=== PATIENT | male | born 1960 | race Caucasian/White ===

== ENCOUNTER 2018-01-22 19:53 | Emergency (ER) | payer SELFPAY ==
--- NOTE | 2018-01-23 06:26 | ER Document Report ---
ED Fall - General Chief Complaint: Fall Stated Complaint: FALL Time Seen by Provider: 01/23/18 06:15 - HPI Notes: Patient is a 58-year-old male that presents to the emergency department for chief complaint of fall and head injury. Patient states he was drinking alcohol yesterday. He fell backwards in the shower hitting his low back, right shoulder, and head. He complains of sharp pain on the left side of his low back. The pain is nonradiating. It is worse with movement and relieved when he is sitting still. He has not taken any pain medication at home. He denied any loss of consciousness. He denies headache, vision changes, numbness, weakness and neck pain. Past Medical History: COPD, hepatitis C Past Surgical History: Social History: Daily tobacco, occasional alcohol, denies drug use Family History: Reviewed and noncontributory for presenting illness Allergies: Reviewed, see documented allergy list. REVIEW OF SYSTEMS: CONSTITUTIONAL : No fever No chills No diaphoresis No recent illness EENT: No vision changes No congestion No sore throat CARDIOVASCULAR: No chest pain No palpitations RESPIRATORY: No shortness of breath No cough No difficulty breathing GASTROINTESTINAL: No abdominal pain No nausea No vomiting No diarrhea GENITOURINARY: No dysuria No hematuria No difficulty urinating MUSCULOSKELETAL: back pain No leg pain Shoulder pain SKIN: No rashes No lesions LYMPHATIC: No swollen, enlarged glands. NEUROLOGICAL: No lightheadedness No headache No weakness No paresthesias PSYCHIATRIC: No anxiety No depression PHYSICAL EXAMINATION: Vital signs reviewed, nursing noted reviewed. GENERAL: Well-appearing, well-nourished and in no acute distress. HEAD: Atraumatic, normocephalic. EYES: Eyes appear normal, extraocular movements intact, sclera anicteric, conjunctiva are normal. ENT: nares patent, oropharynx clear without exudates. Moist mucous membranes. NECK: Normal range of motion, supple without lymphadenopathy BACK: Left lumbar paraspinal tenderness and midline lumbar tenderness. No step- offs. No right paraspinal tenderness LUNGS: Breath sounds clear to auscultation bilaterally and equal. No wheezes rales or rhonchi. HEART: Regular rate and rhythm without murmurs ABDOMEN: Soft, nontender, normoactive bowel sounds. No rebound, guarding, or rigidity. No masses appreciated. EXTREMITIES: Nontender, good range of motion, no pitting or edema. Pelvis stable NEUROLOGICAL: No focal neurological deficits. Moves all extremities spontaneously Motor and sensory grossly intact on exam. PSYCH: Normal mood, normal affect. SKIN: Warm, Dry, normal turgor, no rashes. Superficial abrasion to dorsal left forearm with no active bleeding. - Related data Allergies/Adverse Reactions: No Known Drug Allergies Allergy (Verified 01/22/18 19:57) Past Medical History - Social History Smoking Status: Current Every Day Smoker Family History: Reviewed & Not Pertinent Patient has suicidal ideation: No Patient has homicidal ideation: No Renal/ Medical History: Denies: Hx Peritoneal Dialysis Review of Systems - Review of Systems Notes: Dictated Physical Exam - Vital signs Vitals: Temp Pulse BP Pulse Ox 98.2 F 83 109/61 96 01/22/18 20:14 01/22/18 20:14 01/22/18 20:14 01/22/18 20:14 - Notes Notes: Dictated Course - Re-evaluation Re-evalutation: 01/23/18 06:23 Vitals reviewed and stable. Nursing notes reviewed. Patient has no focal neurologic deficits. He is alert with a GCS of 15 and speaking in complete sentences. Tetanus was updated last year. Patient has full range of motion, no external signs of injury, and no bony tenderness in the right shoulder, I do not suspect acute fracture of the right shoulder therefore imaging not currently indicated. 01/23/18 06:25 01/23/18 08:[address] 01/23/18 06:20 IMPRESSION: 1. No acute fracture or dislocation of the cervical spine. 2. Multilevel degenerative changes as described above.. Head CT 01/23/18 06:20 IMPRESSION: There is no evidence of acute intracranial pathology. Lumbar Spine X-Ray 01/23/18 06:20 IMPRESSION: 1. Mild scoliosis and degenerative changes involving the lumbar spine. 2. No acute osseous findings. 3. If symptoms are persistent, additional imaging may be helpful for further evaluation. Patient has remained neurologically intact and is able to ambulate. Given ibuprofen for pain. Images show no acute injury. Patient discharged home in stable condition - Vital Signs Vital signs: Temp Pulse Resp BP Pulse Ox 97.5 F 67 18 118/74 99 01/23/18 05:28 01/23/18 05:28 01/23/18 01:38 01/23/18 05:28 01/23/18 05:28 Discharge - Discharge Clinical Impression: Closed head injury Qualifiers: Encounter type: initial encounter Qualified Code(s): S09.90XA - Unspecified injury of head, initial encounter Back pain Qualifiers: Back pain location: low back pain Chronicity: acute Back pain laterality: left Sciatica presence: without sciatica Qualified Code(s): M54.5 - Low back pain Shoulder pain Qualifiers: Chronicity: acute Laterality: right Qualified Code(s): M25.511 - Pain in right shoulder Condition: Stable Disposition: HOME, SELF-CARE Instructions: Family Physicians / Practices, Head Injury Precautions ([facility]), Low Back Pain ([facility]) Additional Instructions: Please return to the emergency department if you have any worsening, or concern of your symptoms. Please return to the emergency department if you develop chest pain, difficulty breathing, severe abdominal pain, or ongoing vomiting. Please follow-up with your primary care physician in 2-3 days and any other recommended physicians. If prescribed, take all medications as directed. If you have any questions or concerns do not hesitate to return the emergency department for evaluation. []
--- NOTE | 2018-01-23 07:18 | RADIOLOGY REPORT (SQ) ---
CLINICAL DATA: 58-year-old male who fell in the bathroom last night and hit posterior head and has posterior head pain. TECHNICAL DATA: Multiple axial CT images of the brain were performed followed by sagittal and coronal reconstructed images. The CT study is performed according to ALARA (as low as reasonably achievable) or ALARA/IMAGE GENTLY, with automatic adjustment of mA and/or kV according to patient size. Comparisons: None. FINDINGS: There is no evidence of mass, acute mass effect or midline shift. There are no acute extra-axial fluid collections. There is no evidence of acute intracranial hemorrhage. The cerebral sulci and ventricles are normal in size and configuration. There are no focal abnormal areas of increased or decreased attenuation. . There is no significant mucosal thickening of the paranasal sinuses. The mastoid air cells are clear. The orbital contents are grossly unremarkable. No acute osseous abnormalities are identified. No focal soft tissue abnormalities are identified. IMPRESSION: There is no evidence of acute intracranial pathology.
--- NOTE | 2018-01-23 07:22 | RADIOLOGY REPORT (SQ) ---
EXAM DESCRIPTION: CT cervical spine without contrast 01/23/2018 6:16 AM CDT CLINICAL HISTORY: 58 years, Male, trauma COMPARISON: None. TECHNIQUE: Volumetric CT acquisition was performed through the cervical spine. Images in the axial, coronal, and sagittal planes were presented for interpretation. This exam was performed according to our departmental dose-optimization program, which includes automated exposure control, adjustment of the mA and/or kV according to patient size and/or use of iterative reconstruction technique. FINDINGS: There are 7 cervical type vertebral bodies in normal anatomic alignment. There is no evidence of acute fracture or dislocation. There are multilevel degenerative changes throughout the cervical spine. At the C2/C3 level, there is loss of disc space height with base right paracentral disc osteophyte complex as well as the vertebral hypertrophy bilaterally. There is severe neural foraminal narrowing on the right and mild neuroforaminal narrowing on the left. At the C3/C4 level, there is loss of disc space height with a moderate broad-based right paracentral disc osteophyte complex. There is moderate neural foraminal narrowing on the right and mild neural foraminal narrowing on the left. At the C4/C5 level, there is loss of disc space height with a moderate broad-based disc osteophyte complex. There is mild bilateral hypertrophy bilaterally. There is moderate to severe neural foraminal narrowing bilaterally. At the C5/C6 level, there is loss of disc space height with a moderate broad-based disc aspect complexes and mild vertebral hypertrophy bilaterally. There is severe neural foraminal narrowing bilaterally. At the C6/C7 level, there is loss of disc space height with a moderate broad-based disc osteophyte complex. There is moderate to severe neural foraminal narrowing bilaterally. The paravertebral and prevertebral soft tissues are normal. There are no fluid collections or evidence of soft tissue thickening. The musculature and soft tissue structures of the neck are within normal limits. There are no pathologically enlarged lymph nodes. The visualized vasculature is normal. The visualized portions of the brain and skull base are grossly unremarkable. Limited evaluation of the lung apices demonstrate no gross abnormalities. IMPRESSION: 1. No acute fracture or dislocation of the cervical spine. 2. Multilevel degenerative changes as described above..
--- NOTE | 2018-01-23 08:04 | RADIOLOGY REPORT (SQ) ---
EXAM DESCRIPTION: L SPINE WHOLE COMPLETED DATE/TIME: 01/23/2018 7:02 am REASON FOR STUDY: trauma COMPARISON: None. NUMBER OF VIEWS: Five views including obliques. TECHNIQUE: AP, lateral, oblique, and sacral radiographic images acquired of the lumbar spine. LIMITATIONS: None. FINDINGS: MINERALIZATION: Normal. SEGMENTATION: Normal. No transitional anatomy. ALIGNMENT: Scoliosis, apex to the right. VERTEBRAE: Maintained height. No fracture or worrisome bone lesion. DISCS: Multilevel mild disc space narrowing. Small to mildly prominent anterior osteophytes. POSTERIOR ELEMENTS: Mild facet arthrosis lower lumbar spine. Pedicles are intact. No pars defect o r posterior arch defects. HARDWARE: None in the spine. PARASPINAL SOFT TISSUES: Normal. PELVIS: Intact as visualized. No fractures or worrisome bone lesions. SI joints intact. OTHER: Small calcified granuloma in the visualized liver and spleen, probably secondary to prior gra nulomatous disease. IMPRESSION: 1. Mild scoliosis and degenerative changes involving the lumbar spine. 2. No acute osseous findings. 3. If symptoms are persistent, additional imaging may be helpful for further evaluation. TECHNICAL DOCUMENTATION: JOB ID: [id number] [employer]- All Rights Reserved Reading location - IP/workstation name: [email or web address]
[2018-01-23] MEDS ORDERED: IBUPROFEN 600 MG TABLET PO ONE (08:33)
[2018-01-23 09:04] VITALS: BP 117/79
== END 2018-01-23 09:03 | disposition home or self-care (01) ==
LOC: ER 19:53
DX: S09.90XA Unspecified injury of head, initial encounter (principal); S50.812A Abrasion of left forearm, initial encounter; M54.5 Low back pain; M25.511 Pain in right shoulder; W18.2XXA Fall in (into) shower or empty bathtub, initial encounter; M47.9 Spondylosis, unspecified; M41.9 Scoliosis, unspecified; J44.9 Chronic obstructive pulmonary disease, unspecified; F17.200 Nicotine dependence, unspecified, uncomplicated
CPT/HCPCS: 70450; 72110; 72125; 99284

== ENCOUNTER 2018-01-28 04:08 | Emergency (ER) | payer SELFPAY ==
--- NOTE | 2018-01-28 05:18 | RADIOLOGY REPORT (SQ) ---
EXAM DESCRIPTION: XR LUMBAR SPINE ANTEROPOSTERIOR, LATERAL, AND OBLIQUES COMPLETED DATE/TME: 01/28/2018 04:33 CLINICAL HISTORY: 58 years Male, back pain s/p fall COMPARISON: 9..18 Findings: Moderate disc desiccation between the L1 and L4 levels. Mild lower lumbar spondylosis. Normal alignment and curvature. Vertebral and intervertebral heights are maintained. Extraspinal structures are grossly intact. Stable. IMPRESSION: No acute findings of XR LUMBAR SPINE ANTEROPOSTERIOR, LATERAL, AND OBLIQUES .
[2018-01-28] MEDS ORDERED: KETOROLAC TROMETHAMINE 60 MG/2 ML SDV IM ONE (06:06)
--- NOTE | 2018-01-28 06:09 | ER Document Report ---
HPI - HPI Pain Level: 4 Notes: Patient is a 50-year-old male who presents with chief complaint of pain. Patient reports he was walking when he slipped and fell striking his back onto a concrete surface. Patient denies any other pain or injury. Patient does report drinking alcohol earlier. Patient denies striking his head. Past Medical History - General Information source: Patient - Social History Smoking Status: Current Every Day Smoker Frequency of alcohol use: Heavy Drug Abuse: None Family History: Reviewed & Not Pertinent - Past Medical History Cardiac Medical History: Reports: Hx Hypertension Renal/ Medical History: Denies: Hx Peritoneal Dialysis Vertical Provider Document - CONSTITUTIONAL Notes: PHYSICAL EXAMINATION: GENERAL: Well-appearing, well-nourished and in no acute distress. HEAD: Atraumatic, normocephalic. EYES: Pupils equal round and reactive to light, extraocular movements intact, sclera anicteric, conjunctiva are normal. ENT: Nares patent, oropharynx clear without exudates. Moist mucous membranes. NECK: Normal range of motion, supple without lymphadenopathy LUNGS: Breath sounds clear to auscultation bilaterally and equal. No wheezes rales or rhonchi. HEART: Regular rate and rhythm without murmurs ABDOMEN: Soft, nontender, nondistended abdomen. No guarding, no rebound. No masses appreciated. Musculoskeletal: Normal range of motion, no pitting or edema. No cyanosis. Tenderness to palpation along lumbar spine. NEUROLOGICAL: Cranial nerves grossly intact. Normal speech, normal gait. Normal sensory, motor exams PSYCH: Normal mood, normal affect. SKIN: Warm, Dry, normal turgor, no rashes or lesions noted. - INFECTION CONTROL TRAVEL OUTSIDE OF THE [place] IN LAST 30 DAYS: No Course - Re-evaluation Re-evalutation: L-spine x-rays negative for any acute findings. Patient was given Toradol IM, states relief from his pain. Patient will be discharged in stable condition soon as patient is clinically sober. - Vital Signs Vital signs: Temp Pulse Resp BP Pulse Ox 97.5 F 75 20 98/58 L 93 01/28/18 04:14 01/28/18 04:14 01/28/18 04:14 01/28/18 04:14 01/28/18 04:14 Discharge - Discharge Clinical Impression: mechanical fall, Lumbar back pain Condition: Stable Disposition: HOME, SELF-CARE Additional Instructions: LOW BACK PAIN: Three out of every four people will have an episode of disabling back pain during their lifetime. Most commonly the pain is due to straining of the muscles and ligaments in the low back. Usual treatment includes: (1) Rest on a firm surface. Avoid lying on your stomach. (2) Ice pack the painful area. After a few days, gentle heat may be used intermittently to relax the area, or ice packs can be continued. (3) Medication may be needed -- muscle relaxers and antiinflammatory medicines are commonly used. (4) As the back improves, exercises are prescribed to strengthen the back and abdominal muscles. Your doctor will advise you on the proper care for your back at each stage in your recovery. You may be better in a few days -- or healing may take several weeks. If new symptoms of a "herniated disc" (radiation of pain, numbness, or tingling down the back of the leg or weakness in the leg) occur, you should be re-examined. Further testing may be necessary. PAIN MEDICATION INJECTION: You have received an injection of a pain medication. You should experience significant pain relief within 45 minutes. If this injection was a narcotic -- it will impair your judgement, slow your reaction time and make you sleepy (as well as relieve your pain). Narcotics also can cause nausea. You should not drive, work with machinery, or perform any task requiring mental alertness until all effects of the medication are gone -- six to eight hours. Do not take any alcohol, or sedatives, and do not take any other medication without checking with your physician. ICE PACKS: Apply ice packs frequently against the painful area. Many different schedules are recommended, such as "20 minutes on, 20 minutes off" or "one hour ice, two hours rest." If you need to work, you may need to go longer between ice treatments. You should plan to have the area ice packed AT LEAST one fourth of the time. The ice should be applied over the wrap, tape, or splint, or over a layer of cloth -- not directly against the skin. Some ice bags have a built-in cloth and can be put directly on the skin. WARM PACKS: After approximately two days, apply gentle heat (such as a heating pad or hot water bottle) for about 20 to 30 minutes about every two hours -- at least four times daily. Warmth and elevation will help you make a more rapid recovery , and will ease the pain considerably. Do not use HOT heat, and never apply heat for longer than 30 minutes. The continuous heat can invisibly damage skin and muscles -- even when no burn is seen on the surface. Damaged muscles can make you MORE sore. FOLLOW-UP CARE: If you have been referred to a physician for follow-up care, call the physician s office for an appointment as you were instructed or within the next two days. If you experience worsening or a significant change in your symptoms, notify the physician immediately or return to the Emergency Department at any time for re-evaluation. Your x-ray today was negative for any acute findings. Please follow-up with your primary care provider, take Tylenol or ibuprofen for pain.
[2018-01-28 10:04] VITALS: BP 114/71
== END 2018-01-28 10:05 | disposition home or self-care (01) ==
LOC: ER 04:08
DX: M54.5 Low back pain (principal); W01.0XXA Fall on same level from slipping, tripping and stumbling without subsequent striking against object, initial encounter; Y93.01 Activity, walking, marching and hiking; Y92.410 Unspecified street and highway as the place of occurrence of the external cause; I10 Essential (primary) hypertension; F17.200 Nicotine dependence, unspecified, uncomplicated
CPT/HCPCS: 99284; 96372; 72110; J1885